=== PATIENT | male | born 1965 | race Caucasian/White ===

== ENCOUNTER 2017-10-13 20:13 | Emergency (ER) | payer MEDICAID ==
[~2017-10-13] VITALS: Ht 188 cm; Wt 81.8 kg
[~2017-10-13 20:13] MED LIST: FURO-150 PO; MULT-1085 PO; PANT-47 PO; [UNRECOGNIZED DRUG - CODE] PO
[2017-10-13 20:20] VITALS: BP 137/98
[2017-10-13] MEDS ORDERED: cephalexin 500mg capsule PO ONE (20:40)
[2017-10-13] MEDS ORDERED: CEPH500C5 PO (20:41)
== END 2017-10-13 21:09 | disposition home or self-care (01) ==
LOC: ER 20:14
DX: M70.31 Other bursitis of elbow, right elbow (principal); L03.113 Cellulitis of right upper limb; J44.9 Chronic obstructive pulmonary disease, unspecified; Z79.899 Other long term (current) drug therapy; W22.8XXA Striking against or struck by other objects, initial encounter; Y93.89 Activity, other specified; Y92.89 Other specified places as the place of occurrence of the external cause; Y99.9 Unspecified external cause status
CPT/HCPCS: 99283; A4565; A6449

== ENCOUNTER 2017-12-30 21:50 | Emergency (ER) | payer MEDICAID ==
[~2017-12-30] VITALS: Ht 185.4 cm; Wt 76.5 kg
[~2017-12-30 21:50] MED LIST changes: +CEPH500C5 PO
[2017-12-30] MEDS ORDERED: ketorolac trometh. 30mg/ml inj. IM ONE (23:05)
[2017-12-30] MEDS ORDERED: PANT-47 PO (23:17)
[2017-12-30] MEDS ORDERED: IBUP-1986 PO (23:17)
[2017-12-30] MEDS ORDERED: CEPH500C5 PO (23:23)
[2017-12-30 23:50] VITALS: BP 145/82
== END 2017-12-30 23:51 | disposition home or self-care (01) ==
LOC: ER 21:51
DX: S22.32XA Fracture of one rib, left side, initial encounter for closed fracture (principal); L03.011 Cellulitis of right finger; J44.9 Chronic obstructive pulmonary disease, unspecified; F17.200 Nicotine dependence, unspecified, uncomplicated; Z79.899 Other long term (current) drug therapy; Y08.89XA Assault by other specified means, initial encounter; Y93.89 Activity, other specified; Y92.89 Other specified places as the place of occurrence of the external cause; Y99.8 Other external cause status
CPT/HCPCS: 71100; 96372; 99284; J1885

== ENCOUNTER 2018-01-02 13:05 | Emergency (ER) | payer MEDICAID ==
[~2018-01-02] VITALS: Ht 185.4 cm; Wt 73.0 kg
[~2018-01-02 13:05] MED LIST changes: +IBUP-1986 PO
[2018-01-02 13:11] VITALS: BP 133/86
[2018-01-02] MEDS ORDERED: HYDR-569 PO (14:06)
== END 2018-01-02 14:10 | disposition home or self-care (01) ==
LOC: ER 13:05
DX: S22.42XA Multiple fractures of ribs, left side, initial encounter for closed fracture (principal); J44.9 Chronic obstructive pulmonary disease, unspecified; F17.200 Nicotine dependence, unspecified, uncomplicated; Z79.899 Other long term (current) drug therapy; Y08.89XA Assault by other specified means, initial encounter; Y93.89 Activity, other specified; Y92.89 Other specified places as the place of occurrence of the external cause; Y99.8 Other external cause status
CPT/HCPCS: 99283

== ENCOUNTER 2018-08-14 08:16 | Emergency (ER) | payer MEDICAID ==
[~2018-08-14] VITALS: Ht 186.7 cm; Wt 59.9 kg
[~2018-08-14 08:16] MED LIST changes: +HYDR-4383 PO
[2018-08-14 08:19] VITALS: BP 136/93
[2018-08-14] MEDS ORDERED: ibuprofen tablet 400 MG TABLET PO ONE (09:00)
[2018-08-14] MEDS ORDERED: ACET650S13 RC (09:06)
[2018-08-14] MEDS ORDERED: IBUP-1984 PO ×2 (09:06→09:11)
[2018-08-14] MEDS ORDERED: ACET-812 PO (09:11)
[2018-08-15] MEDS ORDERED: IBUP-1984 PO (15:34)
[2018-08-15] MEDS ORDERED: ACET-2119 PO (15:34)
== END 2018-08-14 09:46 | disposition home or self-care (01) ==
LOC: ER 08:17
DX: M25.561 Pain in right knee (principal); J44.9 Chronic obstructive pulmonary disease, unspecified; Z79.899 Other long term (current) drug therapy
CPT/HCPCS: 99282; 99283

== ENCOUNTER 2018-08-15 15:14 | Emergency (ER) | payer MEDICAID ==
[~2018-08-15] VITALS: Ht 185.4 cm; Wt 77.0 kg
[~2018-08-15 15:14] MED LIST changes: +ACET-812 PO; +ACET650S13 RC; +IBUP-1984 PO
[2018-08-15 15:30] VITALS: BP 142/116
[2018-08-15] MEDS ORDERED: IBUP-1984 PO (15:34)
[2018-08-15] MEDS ORDERED: ACET-2119 PO (15:34)
== END 2018-08-15 15:51 | disposition home or self-care (01) ==
LOC: ER 15:14
DX: M25.561 Pain in right knee (principal); J44.9 Chronic obstructive pulmonary disease, unspecified; Z76.0 Encounter for issue of repeat prescription
CPT/HCPCS: 99282

== ENCOUNTER 2018-12-30 09:06 | Emergency (ER) | payer MEDICAID ==
[~2018-12-30] VITALS: Ht 175.3 cm; Wt 68.2 kg
[~2018-12-30 09:06] MED LIST changes: -ACET-812 PO; -ACET650S13 RC; -IBUP-1984 PO
[2018-12-30 09:17] VITALS: BP 114/89
--- NOTE | 2018-12-30 11:39 | NUR ---
PT TO XRAY
[2018-12-30] MEDS ORDERED: AMOX-422 PO (12:11)
[2018-12-30] MEDS ORDERED: IBUP-1985 PO (12:12)
== END 2018-12-30 12:19 | disposition home or self-care (01) ==
LOC: ER 09:07
DX: S80.211A Abrasion, right knee, initial encounter (principal); J06.9 Acute upper respiratory infection, unspecified; J44.9 Chronic obstructive pulmonary disease, unspecified; F17.200 Nicotine dependence, unspecified, uncomplicated; Z79.899 Other long term (current) drug therapy; W50.0XXA Accidental hit or strike by another person, initial encounter; Y93.89 Activity, other specified; Y92.89 Other specified places as the place of occurrence of the external cause; Y99.9 Unspecified external cause status
CPT/HCPCS: 73564; 99283

== ENCOUNTER 2019-08-08 22:01 | Emergency (ER) | payer MEDICAID ==
[~2019-08-08] VITALS: Ht 185.4 cm; Wt 77.0 kg
[~2019-08-08 22:01] MED LIST changes: -CEPH500C5 PO; +IBUP-1985 PO
[2019-08-08 22:11] VITALS: BP 136/92
[2019-08-09] MEDS ORDERED: IBUP-1984 PO (10:17)
[2019-08-09] MEDS ORDERED: FAMO-128 PO (10:26)
== END 2019-08-08 23:40 | disposition left against medical advice (07) ==
LOC: ER 22:01
DX: M79.602 Pain in left arm (principal); Z53.21 Procedure and treatment not carried out due to patient leaving prior to being seen by health care provider

== ENCOUNTER 2019-08-09 07:53 | Emergency (ER) | payer MEDICAID ==
[~2019-08-09] VITALS: Ht 175.3 cm; Wt 65.0 kg
[2019-08-09 08:06] VITALS: BP 148/99
[2019-08-09] MEDS ORDERED: IBUP-1984 PO (10:17)
[2019-08-09] MEDS ORDERED: FAMO-128 PO (10:26)
== END 2019-08-09 10:33 | disposition home or self-care (01) ==
LOC: ER 07:54
DX: S52.292D Other fracture of shaft of left ulna, subsequent encounter for closed fracture with routine healing (principal); J44.9 Chronic obstructive pulmonary disease, unspecified; F10.99 Alcohol use, unspecified with unspecified alcohol-induced disorder; Z79.899 Other long term (current) drug therapy; V89.2XXD Person injured in unspecified motor-vehicle accident, traffic, subsequent encounter; Y90.9 Presence of alcohol in blood, level not specified
CPT/HCPCS: 99282

== ENCOUNTER 2019-08-14 21:16 | Emergency (ER) | payer MEDICAID ==
[~2019-08-14] VITALS: Ht 175.3 cm; Wt 65.0 kg
[~2019-08-14 21:16] MED LIST changes: +FAMO-128 PO; +IBUP-1984 PO
[2019-08-14] MEDS ORDERED: naproxen 500mg tablet PO ONE (21:25)
[2019-08-14] MEDS ORDERED: normal saline 1000ML IV soln IVB ONE (21:25)
[2019-08-15 02:52] VITALS: BP 129/82
[2019-08-15] MEDS ORDERED: naproxen 500mg tablet PO ONE (03:05)
== END 2019-08-15 03:25 | disposition home or self-care (01) ==
LOC: ER 21:17
DX: F10.920 Alcohol use, unspecified with intoxication, uncomplicated (principal); R47.81 Slurred speech; J44.9 Chronic obstructive pulmonary disease, unspecified; F17.210 Nicotine dependence, cigarettes, uncomplicated; Z79.899 Other long term (current) drug therapy; Y90.9 Presence of alcohol in blood, level not specified
CPT/HCPCS: 99284; J7030

== ENCOUNTER 2019-08-17 23:08 | Emergency (ER) | payer MEDICAID ==
[~2019-08-17] VITALS: Ht 185.4 cm; Wt 79.5 kg
[2019-08-18] MEDS ORDERED: LIDOcaine 1% W/epiNEPHrine 1:100,000 20ml vial IJ ONE (00:05)
[2019-08-18] MEDS ORDERED: LIDOcaine 1% w/EPI 1:200,000 injection 10mL vial IM ONE (00:05)
[2019-08-18 01:25] VITALS: BP 128/92
== END 2019-08-18 01:27 | disposition home or self-care (01) ==
LOC: ER 23:09
DX: S16.1XXA Strain of muscle, fascia and tendon at neck level, initial encounter (principal); S01.01XA Laceration without foreign body of scalp, initial encounter; J44.9 Chronic obstructive pulmonary disease, unspecified; F17.200 Nicotine dependence, unspecified, uncomplicated; Z79.899 Other long term (current) drug therapy; Z79.1 Long term (current) use of non-steroidal anti-inflammatories (NSAID); W01.198A Fall on same level from slipping, tripping and stumbling with subsequent striking against other object, initial encounter; Y93.01 Activity, walking, marching and hiking; Y92.89 Other specified places as the place of occurrence of the external cause; Y99.8 Other external cause status
CPT/HCPCS: 12001; 70450; 72125; 99284

== ENCOUNTER 2019-08-23 01:15 | Emergency (ER) | payer MEDICAID ==
[~2019-08-23] VITALS: Ht 185.4 cm; Wt 68.2 kg
[~2019-08-23 01:15] MED LIST changes: -IBUP-1984 PO
[2019-08-23 01:25] VITALS: BP 129/84
[2019-08-23] MEDS ORDERED: ibuprofen tablet 400 MG TABLET PO ONE (01:30)
[2019-08-23] MEDS ORDERED: IBUP-1985 PO (01:31)
== END 2019-08-23 01:55 | disposition home or self-care (01) ==
LOC: ER 01:16
DX: R07.89 Other chest pain (principal); J44.9 Chronic obstructive pulmonary disease, unspecified; F17.210 Nicotine dependence, cigarettes, uncomplicated; Z79.899 Other long term (current) drug therapy; Z79.1 Long term (current) use of non-steroidal anti-inflammatories (NSAID)
CPT/HCPCS: 99282

== ENCOUNTER 2019-09-02 15:10 | Emergency (ER) | payer MEDICAID ==
[~2019-09-02] VITALS: Ht 185.4 cm; Wt 79.5 kg
[2019-09-02 15:17] VITALS: BP 158/111
== END 2019-09-02 16:28 | disposition left against medical advice (07) ==
LOC: ER 15:10
DX: S01.91XD Laceration without foreign body of unspecified part of head, subsequent encounter (principal); Z53.21 Procedure and treatment not carried out due to patient leaving prior to being seen by health care provider; X58.XXXD Exposure to other specified factors, subsequent encounter

== ENCOUNTER 2019-09-09 17:24 | Inpatient (IN) | payer MEDICAID ==
[~2019-09-09] VITALS: Ht 185.4 cm; Wt 68.4 kg
[2019-09-09] MEDS ORDERED: normal saline 1000ML IV soln IVB ONE ×2 (17:35→21:15)
[2019-09-09 17:58] LABS: BASOPHILS # (AUTO) 0.1 X10'3 (0-0.2); BASOPHILS % (AUTO) 1.2 % (0-1); EOSINOPHILS % (AUTO) 0.4 % (0-6); HEMATOCRIT 36.8 % (42.0-52.0); HEMOGLOBIN 12.6 g/dl (14.0-17.9); LYMPHOCYTES # (AUTO) 1.5 X10'3 (1.1-4.8); LYMPHOCYTES % (AUTO) 28.7 % (21-51); MEAN CORPUSCULAR HEMOGLOBIN 35.5 PG (27.0-31.0); MEAN CORPUSCULAR HGB CONC 34.3 g/dL (33.0-36.5); MEAN CORPUSCULAR VOLUME 103.7 FL (78-98); MEAN PLATELET VOLUME 6.6 FL (7.4-10.4); MONOCYTES # (AUTO) 0.2 X10'3 (0-0.9); MONOCYTES % (AUTO) 4.4 % (2-12); NEUTROPHILS # (AUTO) 3.5 X10'3 (1.8-7.7); NEUTROPHILS % (AUTO) 65.3 % (42-75); PLATELET COUNT 120 X10'3 (140-440); RED BLOOD COUNT 3.55 X10'6 (4.70-6.10); RED CELL DISTRIBUTION WIDTH 13.7 % (11.5-14.5); WHITE BLOOD COUNT 5.3 X10'3 (4.5-11.0)
[2019-09-09 18:12] LABS: ALANINE AMINOTRANSFERASE 296 U/L (12-78); ALBUMIN 3.4 G/DL (3.4-5.0); ALBUMIN/GLOBULIN RATIO 0.8 (1.1-1.5); ALKALINE PHOSPHATASE 145 IU/L (46-116); ANION GAP 17 (8-16); ASPARTATE AMINO TRANSFERASE 531 U/L (10-37); BILIRUBIN,TOTAL 0.5 MG/DL (0.1-1.0); BLOOD UREA NITROGEN 19 MG/DL (7-18); BUN/CREATININE RATIO 13.9 (5.4-32.0); CHLORIDE 107 MMOL/L (99-107); CREATININE 1.37 MG/DL (0.60-1.10); GLUCOSE 142 MG/DL (70-104); MAGNESIUM 1.8 MG/DL (1.5-2.4); POTASSIUM 3.3 MMOL/L (3.5-5.1); SODIUM 145 MMOL/L (135-145); TOTAL CARBON DIOXIDE 21.2 MMOL/L (24-32); TOTAL PROTEIN 7.6 G/DL (6.4-8.2); eGFR 54 ML/MIN
[2019-09-09 18:13] LABS: ETHANOL 0.511 GM/DL (0.0-0.010)
--- NOTE | 2019-09-09 21:12 | NUR ---
PT WAS FOUND WITH BP OF 62, PT WAS UNRESPONSIVE. MD AT BEDSIDE, SECOND IV LINE STARTED, 2 MORE LITERS OF IVF HUNG
[2019-09-09] MEDS ORDERED: thiamine 100mg/ml 2ml inj. IV ONE (21:40)
[2019-09-09] MEDS ORDERED: magnesium 2GM in 50ml NS 50 ML IV ONE (21:40)
[2019-09-09] MEDS ORDERED: potassium Cl 10 mEq/100mL bag IV ONE (21:40)
[2019-09-09] MEDS ORDERED: iohexol 300mg/ml 100ml inj. ONE (21:51)
--- NOTE | 2019-09-09 23:40 | NUR ---
PT STATES HE DOES NOT TAKE ANY MEDICATION EXCEPT IBPROFEN NEEDED . WHEN DISCUSSED IF HE TAKES ANY OF HIS MEDS FROM HIS EXTERNAL MED HX AND PATIENT DENIES TAKING ANY OF THOSE MEDS, SAYS" THEY HAVE BEEN STOLEN AND HE HASNT TAKEN ANY MEDS FOR OVER 30 DAYS "
[2019-09-10] VITALS (22 sets, daily range): BP systolic 106–152; BP diastolic 65–94
[2019-09-10 00:01] LABS: BASOPHILS % (AUTO) 0.7 % (0-1); EOSINOPHILS % (AUTO) 0 % (0-6); HEMATOCRIT 29.1 % (42.0-52.0); HEMOGLOBIN 10.2 g/dl (14.0-17.9); LYMPHOCYTES # (AUTO) 0.7 X10'3 (1.1-4.8); LYMPHOCYTES % (AUTO) 11.8 % (21-51); MEAN CORPUSCULAR HEMOGLOBIN 35.8 PG (27.0-31.0); MEAN CORPUSCULAR VOLUME 102.3 FL (78-98); MONOCYTES # (AUTO) 0.4 X10'3 (0-0.9); NEUTROPHILS # (AUTO) 4.9 X10'3 (1.8-7.7); NEUTROPHILS % (AUTO) 81.5 % (42-75); PLATELET COUNT 99 X10'3 (140-440); RED BLOOD COUNT 2.84 X10'6 (4.70-6.10); RED CELL DISTRIBUTION WIDTH 13.7 % (11.5-14.5)
[2019-09-10 00:10] LABS: CLARITY,URINE CLEAR (Clear); COLOR,URINE YELLOW (Yellow); GLUCOSE, URINE NEGATIVE (Neg); KETONES,URINE TRACE mg/dl (Neg); LEUKOCYTE ESTERASE ,URINE NEGATIVE (Neg); NITRITES, URINE NEGATIVE (Neg); OCCULT BLOOD,URINE LARGE (Neg); PROTEIN,URINE 30 mg/dl (Neg); UROBILINOGEN,URINE 0.2 E.U/dL (0.2-1.0)
[2019-09-10 00:16] LABS: URINE AMPHETAMINE SCREEN NEGATIVE (Neg); URINE BARBITUATE SCREEN NEGATIVE (Neg); URINE BENZODIAZEPINES SCREEN NEGATIVE (Neg); URINE CANNABINOID SCREEN NEGATIVE (Neg); URINE COCAINE SCREEN NEGATIVE (Neg); URINE METHADONE SCREEN NEGATIVE (Neg); URINE OPIATE SCREEN NEGATIVE (Neg); URINE PHENCYCLIDINE SCREEN NEGATIVE (Neg)
[2019-09-10 00:20] LABS: UA COLLECTION TYPE CLN CATCH MIDSTREAM
[2019-09-10 00:21] LABS: BACTERIA,URINE NONE SEEN /HPF (Neg); RBC,URINE NONE SEEN /HPF (0-2); SQUAMOUS EPITHELIAL CELL,UR FEW /LPF (FEW); WBC,URINE 0-4 /HPF (0-4)
[2019-09-10 00:22] LABS: FINE GRANULAR CAST 0-3 /LPF (NEGATIVE); HYALINE CASTS 0-3 /LPF (NEGATIVE)
--- NOTE | 2019-09-10 00:43 | NUR ---
pt changed into gown, PT WITH A DRESSING TO RIGHT LOWER LEG ABOVE THE ANKLE IN PLACE INTACT NO DRAINAGE NOTED. ALSO NOTED JOSE IN PT HEAD DUE TO PRIOR ER VISIT. PT AWAITING ROOM PLACEMENT. POC UPDATED.
[2019-09-10] MEDS ORDERED: folic acid 1mg tablet PO ONE (00:55)
[2019-09-10] MEDS ORDERED: thiamine inj. 100 MG in normal saline 100ml IV soln 100 ML IV ONE ×2 (00:55→01:00)
[2019-09-10] MEDS ORDERED: thiamine 100mg/ml 2ml inj. IV ONE (01:00)
[2019-09-10] MEDS ORDERED: dextrose 50%-water 50ml dispensing syringe IV PRN (01:00)
[2019-09-10] MEDS ORDERED: haloperidol lactate 5mg/ml inj IM PRN (01:00)
[2019-09-10] MEDS ORDERED: acetaminophen 325mg tablet PO PRN (01:00)
[2019-09-10] MEDS ORDERED: HYDROmorphone inj. 0.5 MG/0.5 ML DISP.SYRIN IV PRN (01:00)
[2019-09-10] MEDS ORDERED: ondansetron/PF 4mg/2ml inj IV PRN (01:00)
[2019-09-10 01:28] LABS: AMYLASE 327 U/L (25-115); LIPASE 479 U/L (73-393); TROPONIN I 0.41 NG/ML (0.0-0.05)
[2019-09-10 01:31] LABS: CREATINE KINASE 1313 U/L (39-308)
[2019-09-10] MEDS: normal saline 1000ml 1,000 ML IV SCH ×2 (01:44→07:40)
--- NOTE | 2019-09-10 01:55 | NUR ---
I have received report from Tameka VALENTINE from ED and had the opportunity to ask questions. Awaiting arrival of PT
--- NOTE | 2019-09-10 02:04 | NUR ---
PATIENT READY TO BE TRANSPORTED TO ICU , TELEY MONITOR IN PLACE, ABOUT TO WHEEL PT OFF UNIT, DR NEWSOME COMES TO ROOM, ORDERS STAT EKG .
--- NOTE | 2019-09-10 02:06 | NUR ---
EKG DONE NORMAL SINUS RTYHMN
[2019-09-10] MEDS: HYDROmorphone 1 mg/ml syringe IV PRN ×3 (02:39→21:08)
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
[2019-09-10 05:01] LABS: BASOPHILS % (AUTO) 0.7 % (0-1); EOSINOPHILS % (AUTO) 0 % (0-6); HEMOGLOBIN 9.8 g/dl (14.0-17.9); LYMPHOCYTES # (AUTO) 0.7 X10'3 (1.1-4.8); LYMPHOCYTES % (AUTO) 15.2 % (21-51); MEAN CORPUSCULAR VOLUME 102.8 FL (78-98); MONOCYTES # (AUTO) 0.2 X10'3 (0-0.9); MONOCYTES % (AUTO) 4.8 % (2-12); NEUTROPHILS # (AUTO) 3.8 X10'3 (1.8-7.7); NEUTROPHILS % (AUTO) 79.3 % (42-75); PLATELET COUNT 94 X10'3 (140-440); RED BLOOD COUNT 2.73 X10'6 (4.70-6.10); RED CELL DISTRIBUTION WIDTH 13.7 % (11.5-14.5); WHITE BLOOD COUNT 4.8 X10'3 (4.5-11.0)
[2019-09-10 05:51] LABS: ALANINE AMINOTRANSFERASE 216 U/L (12-78); ALBUMIN 2.9 G/DL (3.4-5.0); ALBUMIN/GLOBULIN RATIO 0.9 (1.1-1.5); ALKALINE PHOSPHATASE 115 IU/L (46-116); AMYLASE 344 U/L (25-115); ANION GAP 15 (8-16); ASPARTATE AMINO TRANSFERASE 404 U/L (10-37); BILIRUBIN,TOTAL 0.6 MG/DL (0.1-1.0); BLOOD UREA NITROGEN 17 MG/DL (7-18); BUN/CREATININE RATIO 13.5 (5.4-32.0); CALCIUM 7.2 MG/DL (8.5-10.1); CHLORIDE 110 MMOL/L (99-107); CREATININE 1.26 MG/DL (0.60-1.10); GLUCOSE 117 MG/DL (70-104); LIPASE 296 U/L (73-393); MAGNESIUM 1.9 MG/DL (1.5-2.4); POTASSIUM 4.2 MMOL/L (3.5-5.1); SODIUM 144 MMOL/L (135-145); TOTAL CARBON DIOXIDE 19.2 MMOL/L (24-32); TOTAL PROTEIN 6.3 G/DL (6.4-8.2); TROPONIN I 0.31 NG/ML (0.0-0.05); eGFR 59 ML/MIN
[2019-09-10 05:55] LABS: CREATINE KINASE 1273 U/L (39-308)
--- NOTE | 2019-09-10 07:03 | NUR ---
Problems reprioritized. Patient report given, questions answered & plan of care reviewed with Daryl VALENTINE.
[2019-09-10] MEDS ORDERED: MVI, adult No.4 with vit. K 10 ML in dextrose 5% water 500ml 500 ML IV SCH ×2 (08:00)
[2019-09-10] MEDS ORDERED: ibuprofen 200mg tablet PO PRN (11:25)
[2019-09-10 11:58] LABS: HEMATOCRIT 26.1 % (42.0-52.0); HEMOGLOBIN 9.1 g/dl (14.0-17.9); MEAN CORPUSCULAR HEMOGLOBIN 35.7 PG (27.0-31.0); MEAN CORPUSCULAR HGB CONC 34.9 g/dL (33.0-36.5); MEAN CORPUSCULAR VOLUME 102.4 FL (78-98); MEAN PLATELET VOLUME 6.8 FL (7.4-10.4); PLATELET COUNT 85 X10'3 (140-440); RED BLOOD COUNT 2.55 X10'6 (4.70-6.10); RED CELL DISTRIBUTION WIDTH 13.6 % (11.5-14.5); WHITE BLOOD COUNT 3.8 X10'3 (4.5-11.0)
[2019-09-10] MEDS: HYDROcodone/acetaminophen 10/325mg tab PO PRN ×2 (12:02→18:36)
[2019-09-10] MEDS: ibuprofen tablet 400 MG TABLET PO PRN (13:44)
[2019-09-10] MEDS: LORazepam 2 mg/ml vial IV PRN ×2 (13:48→15:51)
[2019-09-10] MEDS ORDERED: chlordiazePOXIDE 25mg capsule PO PRN (16:20)
--- NOTE | 2019-09-10 18:25 | NUR ---
Patient in room ICU 2038. I have received report from Daryl VALENTINE and had the opportunity to ask questions and assume patient care.
[2019-09-10] MEDS ORDERED: LISI10TA4 PO (19:48)
[2019-09-10] MEDS ORDERED: FAMO20TA8 PO (19:48)
--- NOTE | 2019-09-10 20:10 | NUR ---
Patient refused bath at this time. Addendum: 09/11/19 at 0106 by Johanna Gomez RN this note on incorrect patient
[2019-09-10] MEDS ORDERED: thiamine inj. 100 MG, folic acid inj. 2 MG in normal saline 100ml IV soln 100.0 ML IV SCH (21:00)
[2019-09-10] MEDS: famotidine 20mg tablet PO SCH (21:23)
[2019-09-10] MEDS: lisinopril 10 MG tablet PO SCH (21:24)
[2019-09-10] MEDS: chlordiazePOXIDE 25mg capsule PO SCH (23:41)
[2019-09-11] VITALS (24 sets, daily range): BP systolic 99–128; BP diastolic 68–89
[2019-09-11] MEDS: HYDROcodone/acetaminophen 10/325mg tab PO PRN ×6 (00:01→22:45)
--- NOTE | 2019-09-11 00:10 | NUR ---
patient refused bath at this time, refused repositioning also Addendum: 09/11/19 at 0105 by Johanna Gomez RN this note on incorrect patient
[2019-09-11 05:26] LABS: ALANINE AMINOTRANSFERASE 143 U/L (12-78); ALBUMIN 2.6 G/DL (3.4-5.0); ALBUMIN/GLOBULIN RATIO 0.8 (1.1-1.5); ALKALINE PHOSPHATASE 110 IU/L (46-116); AMYLASE 302 U/L (25-115); ANION GAP 9 (8-16); ASPARTATE AMINO TRANSFERASE 168 U/L (10-37); BILIRUBIN,TOTAL 0.8 MG/DL (0.1-1.0); BLOOD UREA NITROGEN 18 MG/DL (7-18); BUN/CREATININE RATIO 13.8 (5.4-32.0); CALCIUM 7.9 MG/DL (8.5-10.1); CHLORIDE 105 MMOL/L (99-107); GLUCOSE 116 MG/DL (70-104); LIPASE 268 U/L (73-393); MAGNESIUM 1.7 MG/DL (1.5-2.4); PHOSPHORUS 1.9 MG/DL (2.3-4.5); POTASSIUM 3.8 MMOL/L (3.5-5.1); SODIUM 140 MMOL/L (135-145); TOTAL CARBON DIOXIDE 25.8 MMOL/L (24-32); eGFR 57 ML/MIN
[2019-09-11 05:35] LABS: BASOPHILS % (AUTO) 0.9 % (0-1); EOSINOPHILS % (AUTO) 0.9 % (0-6); HEMATOCRIT 22.2 % (42.0-52.0); HEMOGLOBIN 7.9 g/dl (14.0-17.9); LYMPHOCYTES # (AUTO) 0.6 X10'3 (1.1-4.8); LYMPHOCYTES % (AUTO) 34.5 % (21-51); MEAN CORPUSCULAR HEMOGLOBIN 35.9 PG (27.0-31.0); MEAN CORPUSCULAR HGB CONC 35.4 g/dL (33.0-36.5); MEAN CORPUSCULAR VOLUME 101.4 FL (78-98); MEAN PLATELET VOLUME 7.3 FL (7.4-10.4); MONOCYTES # (AUTO) 0.1 X10'3 (0-0.9); MONOCYTES % (AUTO) 8.1 % (2-12); NEUTROPHILS % (AUTO) 55.6 % (42-75); PLATELET COUNT 58 X10'3 (140-440); RED BLOOD COUNT 2.19 X10'6 (4.70-6.10); RED CELL DISTRIBUTION WIDTH 13.6 % (11.5-14.5)
[2019-09-11 05:44] LABS: WHITE BLOOD COUNT 1.8 X10'3 (4.5-11.0)
--- NOTE | 2019-09-11 06:21 | NUR ---
Problems reprioritized. Patient report given, questions answered & plan of care reviewed with Daryl VALENTINE.
[2019-09-11 07:15] LABS: NUCLEATED RED BLOOD CELLS 1 /100WBC (0-0); TOTAL CELLS COUNTED 100
[2019-09-11 07:16] LABS: HYPOCHROMASIA 1+; PLATELET ESTIMATE DECREASED; POLYCHROMASIA 1+
[2019-09-11] MEDS: HYDROmorphone 1 mg/ml syringe IV PRN (08:18)
[2019-09-11] MEDS: thiamine 100mg tablet PO SCH (08:29)
[2019-09-11] MEDS: multivitamins, therapeutics tablet PO SCH (08:29)
[2019-09-11] MEDS: famotidine 20mg tablet PO SCH (08:30)
[2019-09-11] MEDS: chlordiazePOXIDE 25mg capsule PO SCH ×2 (08:30→15:47)
[2019-09-11] MEDS: lisinopril 10 MG tablet PO SCH (08:30)
[2019-09-11] MEDS: folic acid 1mg tablet PO SCH (08:30)
[2019-09-11] MEDS: guaiFENesin ER 600mg tablet PO SCH ×2 (09:56→19:31)
[2019-09-11] MEDS ORDERED: IBUP-1984 PO (10:46)
[2019-09-11 11:44] LABS: % IRON SATURATION 36 % (11-46); IRON 82 UG/DL (53-167); TOTAL IRON BINDING CAPACITY 230 UG/DL (259-388)
--- NOTE | 2019-09-11 14:58 | NUR ---
x4 kvng removed from patient's right scalp per Dr. Orlando's order. Patient tolerated well. Cleaned with hydrogen peroxide and left open to air per MD.
--- NOTE | 2019-09-11 15:17 | NUR ---
phosphorous 1.9; no replacement orders from MD; encourage PO intake.
--- NOTE | 2019-09-11 18:35 | NUR ---
Problems reprioritized. Patient report given, questions answered & plan of care reviewed with Hugh VALENTINE.
[2019-09-11] MEDS: ibuprofen tablet 400 MG TABLET PO PRN (22:47)
[2019-09-12] VITALS (17 sets, daily range): BP systolic 102–142; BP diastolic 68–94
[2019-09-12] MEDS: chlordiazePOXIDE 25mg capsule PO SCH ×4 (00:01→23:56)
[2019-09-12] MEDS ORDERED: LORazepam 2 mg/ml vial IV PRN (01:00)
[2019-09-12] MEDS: HYDROcodone/acetaminophen 10/325mg tab PO PRN ×4 (03:54→18:43)
[2019-09-12 05:23] LABS: BASOPHILS % (AUTO) 0.8 % (0-1); EOSINOPHILS # (AUTO) 0.1 X10'3 (0-0.9); HEMATOCRIT 23.5 % (42.0-52.0); HEMOGLOBIN 8.2 g/dl (14.0-17.9); LYMPHOCYTES # (AUTO) 0.7 X10'3 (1.1-4.8); LYMPHOCYTES % (AUTO) 26.2 % (21-51); MEAN CORPUSCULAR HEMOGLOBIN 36.2 PG (27.0-31.0); MEAN CORPUSCULAR HGB CONC 34.8 g/dL (33.0-36.5); MEAN PLATELET VOLUME 8.3 FL (7.4-10.4); MONOCYTES # (AUTO) 0.2 X10'3 (0-0.9); MONOCYTES % (AUTO) 6.6 % (2-12); NEUTROPHILS # (AUTO) 1.7 X10'3 (1.8-7.7); NEUTROPHILS % (AUTO) 64.4 % (42-75); PLATELET COUNT 54 X10'3 (140-440); RED BLOOD COUNT 2.26 X10'6 (4.70-6.10); RED CELL DISTRIBUTION WIDTH 13.7 % (11.5-14.5); WHITE BLOOD COUNT 2.7 X10'3 (4.5-11.0)
[2019-09-12 05:34] LABS: ALANINE AMINOTRANSFERASE 111 U/L (12-78); ALBUMIN 2.7 G/DL (3.4-5.0); ALBUMIN/GLOBULIN RATIO 0.8 (1.1-1.5); ALKALINE PHOSPHATASE 118 IU/L (46-116); AMYLASE 104 U/L (25-115); ANION GAP 7 (8-16); ASPARTATE AMINO TRANSFERASE 101 U/L (10-37); BILIRUBIN,TOTAL 1.2 MG/DL (0.1-1.0); BLOOD UREA NITROGEN 17 MG/DL (7-18); BUN/CREATININE RATIO 14.2 (5.4-32.0); CALCIUM 8.3 MG/DL (8.5-10.1); CHLORIDE 104 MMOL/L (99-107); GLUCOSE 110 MG/DL (70-104); LIPASE 163 U/L (73-393); MAGNESIUM 1.7 MG/DL (1.5-2.4); PHOSPHORUS 2.4 MG/DL (2.3-4.5); POTASSIUM 3.6 MMOL/L (3.5-5.1); SODIUM 137 MMOL/L (135-145); TOTAL CARBON DIOXIDE 25.9 MMOL/L (24-32); TOTAL PROTEIN 6.3 G/DL (6.4-8.2); eGFR 63 ML/MIN
[2019-09-12 05:36] LABS: PLATELET ESTIMATE DECREASED
[2019-09-12 07:08] LABS: HYPOCHROMASIA 1+; POLYCHROMASIA 1+; TOTAL CELLS COUNTED 100
[2019-09-12] MEDS: ibuprofen tablet 400 MG TABLET PO PRN ×2 (08:07→22:01)
[2019-09-12] MEDS: folic acid 1mg tablet PO SCH (08:07)
[2019-09-12] MEDS: famotidine 20mg tablet PO SCH (08:07)
[2019-09-12] MEDS: multivitamins, therapeutics tablet PO SCH (08:08)
[2019-09-12] MEDS: guaiFENesin ER 600mg tablet PO SCH ×2 (08:08→20:01)
[2019-09-12] MEDS: thiamine 100mg tablet PO SCH (08:08)
[2019-09-12] MEDS: lisinopril 10 MG tablet PO SCH (08:08)
--- NOTE | 2019-09-12 14:13 | NUR ---
Patient transferred to neuro room 4011B with all belongings. Report given to Flor VALENTINE with all questions answered.
--- NOTE | 2019-09-12 18:15 | NUR ---
Patient in room ORTHO 4011. I have received report from MEME Heath and had the opportunity to ask questions and assume patient care.
[2019-09-12] MEDS: HYDROmorphone 1 mg/ml syringe IV PRN (20:01)
[2019-09-13] MEDS: HYDROcodone/acetaminophen 10/325mg tab PO PRN ×3 (04:11→21:26)
--- NOTE | 2019-09-13 06:19 | NUR ---
Problems reprioritized. Patient report given, questions answered & plan of care reviewed with MEME Crain.
[2019-09-13 06:55] VITALS: BP_SYST 126
[2019-09-13 07:07] LABS: BASOPHILS % (AUTO) 0.8 % (0-1); EOSINOPHILS # (AUTO) 0.1 X10'3 (0-0.9); EOSINOPHILS % (AUTO) 2.7 % (0-6); HEMATOCRIT 23.9 % (42.0-52.0); HEMOGLOBIN 8.5 g/dl (14.0-17.9); LYMPHOCYTES # (AUTO) 0.6 X10'3 (1.1-4.8); LYMPHOCYTES % (AUTO) 19.6 % (21-51); MEAN CORPUSCULAR HEMOGLOBIN 36.7 PG (27.0-31.0); MEAN CORPUSCULAR HGB CONC 35.6 g/dL (33.0-36.5); MEAN CORPUSCULAR VOLUME 103.3 FL (78-98); MEAN PLATELET VOLUME 8.1 FL (7.4-10.4); MONOCYTES # (AUTO) 0.2 X10'3 (0-0.9); MONOCYTES % (AUTO) 5.7 % (2-12); NEUTROPHILS # (AUTO) 2.2 X10'3 (1.8-7.7); NEUTROPHILS % (AUTO) 71.2 % (42-75); PLATELET COUNT 64 X10'3 (140-440); RED BLOOD COUNT 2.32 X10'6 (4.70-6.10); RED CELL DISTRIBUTION WIDTH 13.2 % (11.5-14.5); WHITE BLOOD COUNT 3.1 X10'3 (4.5-11.0)
[2019-09-13 07:31] LABS: ALANINE AMINOTRANSFERASE 82 U/L (12-78); ALBUMIN 2.5 G/DL (3.4-5.0); ALBUMIN/GLOBULIN RATIO 0.7 (1.1-1.5); ALKALINE PHOSPHATASE 126 IU/L (46-116); AMYLASE 64 U/L (25-115); ANION GAP 9 (8-16); ASPARTATE AMINO TRANSFERASE 73 U/L (10-37); BILIRUBIN,TOTAL 0.9 MG/DL (0.1-1.0); BLOOD UREA NITROGEN 17 MG/DL (7-18); BUN/CREATININE RATIO 14.5 (5.4-32.0); CALCIUM 8.1 MG/DL (8.5-10.1); CHLORIDE 103 MMOL/L (99-107); CREATININE 1.17 MG/DL (0.60-1.10); GLUCOSE 122 MG/DL (70-104); LIPASE 126 U/L (73-393); MAGNESIUM 1.5 MG/DL (1.5-2.4); PHOSPHORUS 2.6 MG/DL (2.3-4.5); POTASSIUM 3.4 MMOL/L (3.5-5.1); SODIUM 136 MMOL/L (135-145); TOTAL CARBON DIOXIDE 24.1 MMOL/L (24-32); TOTAL PROTEIN 6.1 G/DL (6.4-8.2); eGFR 65 ML/MIN
[2019-09-13] MEDS: folic acid 1mg tablet PO SCH (07:55)
[2019-09-13] MEDS: guaiFENesin ER 600mg tablet PO SCH ×2 (07:55→19:16)
[2019-09-13] MEDS: lisinopril 10 MG tablet PO SCH (07:56)
[2019-09-13] MEDS: famotidine 20mg tablet PO SCH (07:56)
[2019-09-13] MEDS: multivitamins, therapeutics tablet PO SCH (07:56)
[2019-09-13] MEDS: chlordiazePOXIDE 25mg capsule PO SCH ×2 (07:56→15:50)
[2019-09-13] MEDS: thiamine 100mg tablet PO SCH (07:56)
[2019-09-13 10:08] VITALS: BP 112/79
[2019-09-13 18:00] VITALS: BP 139/92
--- NOTE | 2019-09-13 18:10 | NUR ---
Received report from MEME Crain. Assumed patient care.
--- NOTE | 2019-09-13 20:22 | NUR ---
Spoke with MARSHALL Carrera regarding pt K+ 3.4 from am blood draw. No replacement at this time but new orders to add replacement protocol for future need based on lab draws. Addendum: 09/13/19 at 2025 by Crystal Brantley RN MARSHALL Carrera was contacted.
[2019-09-13] MEDS ORDERED: potassium Cl 20 mEq SR tablet PO PRN ×2 (20:55)
[2019-09-13] MEDS ORDERED: magnesium 2GM in 50ml NS 50 ML IV PRN (20:55)
[2019-09-13] MEDS ORDERED: magnesium 4gm in 100ml NS 100 ML IV PRN (20:55)
[2019-09-13] MEDS ORDERED: magnesium Cl slow-release 64mg tablet PO PRN (20:55)
[2019-09-13] MEDS ORDERED: potassium CL 10mEq/100ml bag 100 ML IV PRN ×2 (20:55)
[2019-09-13 22:00] VITALS: BP 130/91
[2019-09-14] MEDS: chlordiazePOXIDE 25mg capsule PO SCH ×2 (00:01→07:20)
[2019-09-14] MEDS ORDERED: LORazepam 2 mg/ml vial IV PRN (01:00)
[2019-09-14] MEDS: HYDROcodone/acetaminophen 10/325mg tab PO PRN ×2 (03:56→19:28)
[2019-09-14 05:51] LABS: BASOPHILS % (AUTO) 1.2 % (0-1); EOSINOPHILS # (AUTO) 0.1 X10'3 (0-0.9); EOSINOPHILS % (AUTO) 2.8 % (0-6); HEMATOCRIT 25.6 % (42.0-52.0); LYMPHOCYTES # (AUTO) 0.7 X10'3 (1.1-4.8); LYMPHOCYTES % (AUTO) 17.2 % (21-51); MEAN CORPUSCULAR HGB CONC 34.9 g/dL (33.0-36.5); MEAN CORPUSCULAR VOLUME 103.1 FL (78-98); MONOCYTES # (AUTO) 0.3 X10'3 (0-0.9); NEUTROPHILS # (AUTO) 2.8 X10'3 (1.8-7.7); NEUTROPHILS % (AUTO) 70.8 % (42-75); PLATELET COUNT 101 X10'3 (140-440); RED BLOOD COUNT 2.49 X10'6 (4.70-6.10); RED CELL DISTRIBUTION WIDTH 13.8 % (11.5-14.5)
[2019-09-14 06:19] LABS: ALANINE AMINOTRANSFERASE 78 U/L (12-78); ALBUMIN 2.7 G/DL (3.4-5.0); ALBUMIN/GLOBULIN RATIO 0.7 (1.1-1.5); ALKALINE PHOSPHATASE 142 IU/L (46-116); AMYLASE 59 U/L (25-115); ANION GAP 10 (8-16); ASPARTATE AMINO TRANSFERASE 68 U/L (10-37); BLOOD UREA NITROGEN 19 MG/DL (7-18); BUN/CREATININE RATIO 15.8 (5.4-32.0); CALCIUM 8.4 MG/DL (8.5-10.1); CHLORIDE 102 MMOL/L (99-107); GLUCOSE 105 MG/DL (70-104); LIPASE 123 U/L (73-393); MAGNESIUM 1.5 MG/DL (1.5-2.4); PHOSPHORUS 3.2 MG/DL (2.3-4.5); POTASSIUM 3.6 MMOL/L (3.5-5.1); SODIUM 136 MMOL/L (135-145); TOTAL CARBON DIOXIDE 24.5 MMOL/L (24-32); TOTAL PROTEIN 6.7 G/DL (6.4-8.2); eGFR 63 ML/MIN
--- NOTE | 2019-09-14 06:19 | NUR ---
Patient report given, questions answered and plan of care reviewed with MEME Rubin.
[2019-09-14 06:33] VITALS: BP 117/84
--- NOTE | 2019-09-14 06:37 | NUR ---
Patient in room ORTHO 4011B. I have received report from LUCÍA VALENTINE and had the opportunity to ask questions and assume patient care.
[2019-09-14] MEDS: folic acid 1mg tablet PO SCH (07:19)
[2019-09-14] MEDS: guaiFENesin ER 600mg tablet PO SCH ×2 (07:20→19:28)
[2019-09-14 07:21] LABS: PLATELET ESTIMATE DECREASED
[2019-09-14] MEDS: thiamine 100mg tablet PO SCH (07:21)
[2019-09-14] MEDS: multivitamins, therapeutics tablet PO SCH (07:21)
[2019-09-14] MEDS: famotidine 20mg tablet PO SCH (07:21)
[2019-09-14] MEDS: lisinopril 10 MG tablet PO SCH (07:23)
[2019-09-14 10:00] VITALS: BP 113/73
[2019-09-14] MEDS ORDERED: FLU VACC QS2019-20 36MOS UP/PF 60 MCG/0.5 ML SYRINGE IMVAC ONE (11:45)
[2019-09-14 18:00] VITALS: BP 122/82
--- NOTE | 2019-09-14 18:15 | NUR ---
Received report from MEME Blanchard. Assumed patient care.
--- NOTE | 2019-09-14 18:16 | NUR ---
Problems reprioritized. Patient report given, questions answered & plan of care reviewed with LUCÍA VALENTINE.
[2019-09-14 22:00] VITALS: BP 127/80
[2019-09-15] MEDS: HYDROcodone/acetaminophen 10/325mg tab PO PRN ×3 (00:49→12:27)
[2019-09-15 05:48] VITALS: BP 139/79
--- NOTE | 2019-09-15 06:22 | NUR ---
Patient report given, questions answered and plan of care reviewed with MEME Rubin.
--- NOTE | 2019-09-15 06:42 | NUR ---
Patient in room ORTHO 4011. I have received report from josy VALENTINE and had the opportunity to ask questions and assume patient care.
[2019-09-15 07:06] LABS: EOSINOPHILS # (AUTO) 0.1 X10'3 (0-0.9); EOSINOPHILS % (AUTO) 2.3 % (0-6); HEMATOCRIT 25.9 % (42.0-52.0); LYMPHOCYTES # (AUTO) 0.3 X10'3 (1.1-4.8); LYMPHOCYTES % (AUTO) 12.9 % (21-51); MEAN CORPUSCULAR VOLUME 103.1 FL (78-98); MEAN PLATELET VOLUME 7.4 FL (7.4-10.4); MONOCYTES # (AUTO) 0.2 X10'3 (0-0.9); NEUTROPHILS # (AUTO) 1.8 X10'3 (1.8-7.7); NEUTROPHILS % (AUTO) 73.8 % (42-75); PLATELET COUNT 99 X10'3 (140-440); RED BLOOD COUNT 2.51 X10'6 (4.70-6.10); RED CELL DISTRIBUTION WIDTH 13.6 % (11.5-14.5); WHITE BLOOD COUNT 2.5 X10'3 (4.5-11.0)
[2019-09-15 07:31] LABS: ALANINE AMINOTRANSFERASE 78 U/L (12-78); ALBUMIN 2.7 G/DL (3.4-5.0); ALBUMIN/GLOBULIN RATIO 0.6 (1.1-1.5); ALKALINE PHOSPHATASE 145 IU/L (46-116); AMYLASE 52 U/L (25-115); ANION GAP 9 (8-16); ASPARTATE AMINO TRANSFERASE 80 U/L (10-37); BILIRUBIN,TOTAL 1.2 MG/DL (0.1-1.0); BLOOD UREA NITROGEN 15 MG/DL (7-18); CALCIUM 8.6 MG/DL (8.5-10.1); CHLORIDE 102 MMOL/L (99-107); CREATININE 1.25 MG/DL (0.60-1.10); GLUCOSE 106 MG/DL (70-104); LIPASE 114 U/L (73-393); MAGNESIUM 1.6 MG/DL (1.5-2.4); PHOSPHORUS 3.4 MG/DL (2.3-4.5); SODIUM 135 MMOL/L (135-145); TOTAL CARBON DIOXIDE 23.7 MMOL/L (24-32); TOTAL PROTEIN 6.9 G/DL (6.4-8.2); eGFR 60 ML/MIN
[2019-09-15] MEDS: multivitamins, therapeutics tablet PO SCH (07:35)
[2019-09-15] MEDS: folic acid 1mg tablet PO SCH (07:35)
[2019-09-15] MEDS: lisinopril 10 MG tablet PO SCH (07:35)
[2019-09-15] MEDS: guaiFENesin ER 600mg tablet PO SCH (07:36)
[2019-09-15] MEDS: thiamine 100mg tablet PO SCH (07:36)
[2019-09-15] MEDS: famotidine 20mg tablet PO SCH (07:36)
[2019-09-15 07:38] LABS: PLATELET ESTIMATE DECREASED; TOTAL CELLS COUNTED 100
[2019-09-15 10:00] VITALS: BP 101/66
[2019-09-15] MEDS ORDERED: FLU VACC QS2019-20 36MOS UP/PF 60 MCG/0.5 ML SYRINGE IMVAC ONE (10:00)
[2019-09-15] MEDS ORDERED: folic acid tablet PO (11:13)
[2019-09-15] MEDS ORDERED: thiamine tablet PO (11:13)
[2019-09-15] MEDS ORDERED: MULT-1179 PO (11:13)
--- NOTE | 2019-09-15 12:39 | NUR ---
Patient discharged with to streets patients are homeless, new prescriptions called in to pharmacy, patient and educated on discharge instruction, patient stable upon discharge
== END 2019-09-15 12:32 | disposition home or self-care (01) | DRG 930 ==
LOC: ER 17:25 → ED HOLD 09-10 01:18 → EDBEDREQ 09-10 01:43 → ICU 2S 09-10 02:04 → ORTHO 4S 09-12 14:05
PROVIDERS: ADMIT Internal Medicine Critical Care Medicine; ATTEND Family Medicine
PROC: BW251ZZ Computerized Tomography (CT Scan) of Chest, Abdomen and Pelvis using Low Osmolar Contrast (ICD-10-PCS; 2019-09-09)
PROC: 4A10X4Z Monitoring of Central Nervous Electrical Activity, External Approach (ICD-10-PCS; principal; 2019-09-10)
PROC: 3E02340 Introduction of Influenza Vaccine into Muscle, Percutaneous Approach (ICD-10-PCS; 2019-09-14)
DX: S42.131A Displaced fracture of coracoid process, right shoulder, initial encounter for closed fracture (principal); S27.2XXA Traumatic hemopneumothorax, initial encounter; S36.899A Unspecified injury of other intra-abdominal organs, initial encounter; I95.9 Hypotension, unspecified; D62 Acute posthemorrhagic anemia; S01.01XA Laceration without foreign body of scalp, initial encounter; S52.209A Unspecified fracture of shaft of unspecified ulna, initial encounter for closed fracture; F10.229 Alcohol dependence with intoxication, unspecified; R74.0 Nonspecific elevation of levels of transaminase and lactic acid dehydrogenase [LDH]; F17.210 Nicotine dependence, cigarettes, uncomplicated; J44.9 Chronic obstructive pulmonary disease, unspecified; R09.02 Hypoxemia; S01.81XA Laceration without foreign body of other part of head, initial encounter; Z59.0 Homelessness; Z91.19 Patient's noncompliance with other medical treatment and regimen; Z23 Encounter for immunization; V09.9XXA Pedestrian injured in unspecified transport accident, initial encounter; Y93.89 Activity, other specified; Y92.481 Parking lot as the place of occurrence of the external cause; Y99.8 Other external cause status; Z79.899 Other long term (current) drug therapy
CPT/HCPCS: 36415; 70450; 71045; 71260; 74177; 80053; 80305; 80320; 81001; 81003; 82150; 82550; 83540; 83550; 83690; 83735; 83874; 84100; 84484; 85025; 85027; 85610; 86803; 86885; 86900; 86901; 86920; 87081; 93005; 93880; 95816; 96365; 96375; 97110; 97116; 97161; 97530; 99285; G0378; J1170; J2060; J2405; J3411; J3475; J3480; J3490; J7060; Q2037; Q9967

== ENCOUNTER 2019-09-18 21:07 | Emergency (ER) | payer MEDICAID ==
[~2019-09-18] VITALS: Ht 185.4 cm; Wt 70.2 kg
[~2019-09-18 21:07] MED LIST changes: -FAMO-128 PO; +FAMO20TA8 PO; -FURO-150 PO; -HYDR-4383 PO; +IBUP-1984 PO; -IBUP-1985 PO; -IBUP-1986 PO; +LISI10TA4 PO; -MULT-1085 PO; +MULT-1179 PO; -PANT-47 PO; -[UNRECOGNIZED DRUG - CODE] PO; +folic acid tablet PO; +thiamine tablet PO
[2019-09-18 23:24] LABS: BASOPHILS # (AUTO) 0.1 X10'3 (0-0.2); EOSINOPHILS # (AUTO) 0.2 X10'3 (0-0.9); HEMATOCRIT 34.2 % (42.0-52.0); LYMPHOCYTES # (AUTO) 1.1 X10'3 (1.1-4.8); MONOCYTES # (AUTO) 0.3 X10'3 (0-0.9); PLATELET COUNT 295 X10'3 (140-440); WHITE BLOOD COUNT 4.8 X10'3 (4.5-11.0)
[2019-09-18 23:25] LABS: EOSINOPHILS % (AUTO) 3.7 % (0-6); HEMOGLOBIN 12.1 g/dl (14.0-17.9); LYMPHOCYTES % (AUTO) 22.2 % (21-51); MEAN CORPUSCULAR HEMOGLOBIN 35.5 PG (27.0-31.0); MEAN CORPUSCULAR HGB CONC 35.3 g/dL (33.0-36.5); MEAN CORPUSCULAR VOLUME 100.4 FL (78-98); MEAN PLATELET VOLUME 6.7 FL (7.4-10.4); MONOCYTES % (AUTO) 7.1 % (2-12); NEUTROPHILS # (AUTO) 3.2 X10'3 (1.8-7.7); RED CELL DISTRIBUTION WIDTH 13.8 % (11.5-14.5)
[2019-09-18 23:34] LABS: PARTIAL THROMBOPLASTIN TIME 25 SECONDS (22-32)
[2019-09-18 23:59] LABS: ALANINE AMINOTRANSFERASE 100 U/L (12-78); ALBUMIN 3.5 G/DL (3.4-5.0); ALBUMIN/GLOBULIN RATIO 0.7 (1.1-1.5); ALKALINE PHOSPHATASE 228 IU/L (46-116); ANION GAP 16 (8-16); ASPARTATE AMINO TRANSFERASE 103 U/L (10-37); BLOOD UREA NITROGEN 13 MG/DL (7-18); BUN/CREATININE RATIO 12.6 (5.4-32.0); CALCIUM 8.7 MG/DL (8.5-10.1); CHLORIDE 105 MMOL/L (99-107); CREATININE 1.03 MG/DL (0.60-1.10); GLUCOSE 84 MG/DL (70-104); POTASSIUM 3.8 MMOL/L (3.5-5.1); SODIUM 142 MMOL/L (135-145); TOTAL PROTEIN 8.4 G/DL (6.4-8.2); eGFR 75 ML/MIN
[2019-09-19 00:07] LABS: MAGNESIUM 1.9 MG/DL (1.5-2.4)
[2019-09-19 01:02] VITALS: BP 134/91
== END 2019-09-19 01:05 | disposition home or self-care (01) ==
LOC: ER 21:08
DX: S22.42XD Multiple fractures of ribs, left side, subsequent encounter for fracture with routine healing (principal); R51 Headache; M79.602 Pain in left arm; J44.9 Chronic obstructive pulmonary disease, unspecified; F10.99 Alcohol use, unspecified with unspecified alcohol-induced disorder; Z59.0 Homelessness; Z79.899 Other long term (current) drug therapy; V09.9XXD Pedestrian injured in unspecified transport accident, subsequent encounter; Y90.9 Presence of alcohol in blood, level not specified
CPT/HCPCS: 36415; 71045; 80053; 83735; 83880; 84484; 85025; 85610; 85730; 93005; 99284

== ENCOUNTER 2019-10-01 15:21 | Emergency (ER) | payer MEDICAID ==
[~2019-10-01] VITALS: Ht 188 cm; Wt 66.4 kg
[2019-10-01 16:18] LABS: BASOPHILS # (AUTO) 0.1 X10'3 (0-0.2); EOSINOPHILS # (AUTO) 0.2 X10'3 (0-0.9); MEAN CORPUSCULAR VOLUME 102.1 FL (78-98); MONOCYTES # (AUTO) 0.5 X10'3 (0-0.9)
[2019-10-01 16:19] LABS: EOSINOPHILS % (AUTO) 3.6 % (0-6); HEMATOCRIT 38.8 % (42.0-52.0); HEMOGLOBIN 13.4 g/dl (14.0-17.9); LYMPHOCYTES # (AUTO) 1.6 X10'3 (1.1-4.8); LYMPHOCYTES % (AUTO) 34.3 % (21-51); MEAN CORPUSCULAR HEMOGLOBIN 35.2 PG (27.0-31.0); MEAN CORPUSCULAR HGB CONC 34.5 g/dL (33.0-36.5); MEAN PLATELET VOLUME 6.3 FL (7.4-10.4); MONOCYTES % (AUTO) 11.4 % (2-12); NEUTROPHILS # (AUTO) 2.2 X10'3 (1.8-7.7); NEUTROPHILS % (AUTO) 48.7 % (42-75); PLATELET COUNT 203 X10'3 (140-440); RED CELL DISTRIBUTION WIDTH 14.4 % (11.5-14.5); WHITE BLOOD COUNT 4.6 X10'3 (4.5-11.0)
[2019-10-01 16:23] LABS: ALANINE AMINOTRANSFERASE 86 U/L (12-78); ALBUMIN 3.3 G/DL (3.4-5.0); ALBUMIN/GLOBULIN RATIO 0.7 (1.1-1.5); ALKALINE PHOSPHATASE 264 IU/L (46-116); ANION GAP 8 (8-16); ASPARTATE AMINO TRANSFERASE 121 U/L (10-37); BILIRUBIN,TOTAL 0.4 MG/DL (0.1-1.0); BLOOD UREA NITROGEN 18 MG/DL (7-18); BUN/CREATININE RATIO 14.6 (5.4-32.0); CALCIUM 8.5 MG/DL (8.5-10.1); CHLORIDE 104 MMOL/L (99-107); CREATININE 1.23 MG/DL (0.60-1.10); GLUCOSE 98 MG/DL (70-104); POTASSIUM 3.8 MMOL/L (3.5-5.1); SODIUM 140 MMOL/L (135-145); TOTAL CARBON DIOXIDE 27.9 MMOL/L (24-32); TOTAL PROTEIN 8.2 G/DL (6.4-8.2); eGFR 61 ML/MIN
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
--- NOTE | 2019-10-01 21:52 | NUR ---
BLOOD SUGAR poc 88
[2019-10-01 23:15] VITALS: BP 140/95
== END 2019-10-01 23:17 | disposition home or self-care (01) ==
LOC: ER 15:22
DX: S40.021A Contusion of right upper arm, initial encounter (principal); F10.129 Alcohol abuse with intoxication, unspecified; K02.9 Dental caries, unspecified; J44.9 Chronic obstructive pulmonary disease, unspecified; Z59.0 Homelessness; Z79.899 Other long term (current) drug therapy; Y04.8XXA Assault by other bodily force, initial encounter; Y93.89 Activity, other specified; Y92.89 Other specified places as the place of occurrence of the external cause; Y99.8 Other external cause status
CPT/HCPCS: 36415; 70450; 71045; 72125; 80053; 80320; 82948; 85025; 99284

== ENCOUNTER 2019-11-07 16:55 | Emergency (ER) | payer MEDICAID ==
[~2019-11-07] VITALS: Ht 185.4 cm; Wt 72.0 kg
--- NOTE | 2019-11-07 18:10 | NUR ---
Pt up for DC and states he also needs his L foot addressed. Provider aware and will evaluate affected foot.
--- NOTE | 2019-11-07 18:35 | NUR ---
ANDREA Harris evaluated foot and gave verbal orders to apply drsg and DC home.
[2019-11-07 18:57] VITALS: BP 140/98
== END 2019-11-07 18:59 | disposition home or self-care (01) ==
LOC: ER 16:56
DX: Z48.00 Encounter for change or removal of nonsurgical wound dressing (principal); J44.9 Chronic obstructive pulmonary disease, unspecified; F10.10 Alcohol abuse, uncomplicated; Z59.0 Homelessness; Z79.899 Other long term (current) drug therapy; Y90.9 Presence of alcohol in blood, level not specified
CPT/HCPCS: 99281; 99282

== ENCOUNTER 2019-11-29 18:01 | Emergency (ER) | payer MEDICAID ==
[~2019-11-29] VITALS: Ht 185.4 cm; Wt 70.0 kg
[2019-11-29 19:44] VITALS: BP 136/91
== END 2019-11-29 19:48 | disposition home or self-care (01) ==
LOC: ER 18:02
DX: S91.301A Unspecified open wound, right foot, initial encounter (principal); G89.29 Other chronic pain; M79.672 Pain in left foot; R46.0 Very low level of personal hygiene; J44.9 Chronic obstructive pulmonary disease, unspecified; Z59.0 Homelessness; Z79.899 Other long term (current) drug therapy; X58.XXXA Exposure to other specified factors, initial encounter; Y93.89 Activity, other specified; Y92.89 Other specified places as the place of occurrence of the external cause; Y99.8 Other external cause status
CPT/HCPCS: 99281; 99282

== ENCOUNTER 2019-12-09 23:40 | Emergency (ER) | payer MEDICAID ==
[~2019-12-09] VITALS: Ht 182.9 cm; Wt 72.7 kg
[2019-12-10] MEDS ORDERED: ketorolac tromethamine 15mg/ml inj. IM ONE (01:05)
--- NOTE | 2019-12-10 01:09 | NUR ---
ICE PACK APPLIED PER DR. SHEPPARD
--- NOTE | 2019-12-10 03:44 | NUR ---
PATIENT HAS BEEN ACCEPTED TO [facility] ENT DEPARTMENT
--- NOTE | 2019-12-10 03:51 | NUR ---
JANET GRESHAM WILL BE ACCEPTING PATIENT #
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
[2019-12-10] MEDS ORDERED: morphine 4 MG/ML inj SYRINge IV ONE (04:25)
[2019-12-10] MEDS ORDERED: ondansetron/PF 4mg/2ml inj IV ONE (04:25)
[2019-12-10 05:58] VITALS: BP 128/97
--- NOTE | 2019-12-10 06:21 | NUR ---
SBAR TO SHIRA VALENTINE NO QUESTIONS OR CONCERNS AFTER ASSUMING CARE
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
== END 2019-12-10 07:31 | disposition left against medical advice (07) ==
LOC: ER 23:41
DX: S02.69XA Fracture of mandible of other specified site, initial encounter for closed fracture (principal); S02.5XXA Fracture of tooth (traumatic), initial encounter for closed fracture; S03.2XXA Dislocation of tooth, initial encounter; J44.9 Chronic obstructive pulmonary disease, unspecified; F10.10 Alcohol abuse, uncomplicated; Z59.0 Homelessness; Z79.899 Other long term (current) drug therapy; Y04.8XXA Assault by other bodily force, initial encounter; Y93.89 Activity, other specified; Y92.89 Other specified places as the place of occurrence of the external cause; Y99.8 Other external cause status; Y90.9 Presence of alcohol in blood, level not specified
CPT/HCPCS: 70450; 70486; 96372; 96374; 96375; 99285; J1885; J2270; J2405

== ENCOUNTER 2020-03-12 07:43 | Emergency (ER) | payer MEDICAID ==
[~2020-03-12] VITALS: Ht 185.4 cm; Wt 75.0 kg
[2020-03-12] MEDS ORDERED: TETanus/Pertussis (Acell)/Diphther VAC/PF (Tdap-Adult) 0.5ml syringe IMVAC ONE (08:30)
[2020-03-12] MEDS ORDERED: LIDOcaine 1% W/epiNEPHrine 1:200,000 10ml vial IJ ONE (08:30)
[2020-03-12] MEDS ORDERED: SULF1TAB49 PO (08:37)
[2020-03-12] MEDS ORDERED: CEPH-572 PO (08:37)
[2020-03-12 10:28] VITALS: BP 139/97
== END 2020-03-12 10:51 | disposition home or self-care (01) ==
LOC: ER 07:44
DX: L02.511 Cutaneous abscess of right hand (principal); R60.9 Edema, unspecified; R52 Pain, unspecified; J44.9 Chronic obstructive pulmonary disease, unspecified; F10.10 Alcohol abuse, uncomplicated; Z59.0 Homelessness; Z79.2 Long term (current) use of antibiotics; Z79.899 Other long term (current) drug therapy; Y90.9 Presence of alcohol in blood, level not specified
CPT/HCPCS: 10060; 73120; 90471; 90715; 99283; 99285